=== PATIENT | male | born 1995 | race Caucasian/White ===

== ENCOUNTER 2019-02-02 09:45 | Emergency (ER) | payer BC ==
--- NOTE | 2019-02-02 10:39 | ER Document Report ---
ED General - General Chief Complaint: Abdominal Pain Stated Complaint: ABDOMINAL PAIN Time Seen by Provider: 02/02/19 10:22 Notes: 23-year-old male with ulcerative colitis diagnosed in 2016 not currently on treatment presents to the emergency department for near syncopal episode at work today. He states over the last couple weeks he has had a UC flare and has had severe loss of appetite, weakness, dizziness and has been pale. Said he has had intermittent fevers, no nausea, no vomiting, has had diarrhea with some bloody diarrhea today, no shortness of breath or chest pain. No other complaints. He said he has been straining with his bowel movements who is unsure if it is from a hemorrhoid or if it is truly hematochezia. TRAVEL OUTSIDE OF THE [place] IN LAST 30 DAYS: No Past Medical History - Social History Smoking Status: Unknown if Ever Smoked Family History: None Review of Systems - Review of Systems Constitutional: See HPI EENT: See HPI Cardiovascular: See HPI Respiratory: See HPI Gastrointestinal: See HPI Genitourinary: See HPI Male Genitourinary: No symptoms reported Musculoskeletal: No symptoms reported Skin: No symptoms reported Hematologic/Lymphatic: No symptoms reported Neurological/Psychological: No symptoms reported Physical Exam - Vital signs Vitals: Resp Pulse Ox 17 100 02/02/19 10:37 02/02/19 10:37 - Notes Notes: PHYSICAL EXAMINATION: Reviewed vital signs and charting by RN GENERAL: Well-appearing, well-nourished and in no acute distress. HEAD: Atraumatic, normocephalic. EYES: Pupils are 3 mm and equal/round, extraocular movements intact, sclera anicteric, conjunctiva are normal. ENT: Nares patent bilaterally, oropharynx clear without exudates or palatal petechia. Moist mucous membranes. No tonsil hypertrophy. NECK: Normal range of motion, supple without lymphadenopathy. LUNGS: Breath sounds present, equal, and clear to auscultation bilaterally. No wheezes, rales, or rhonchi. HEART: Regular rate and rhythm without murmurs, rubs, or gallops. 2+ peripheral pulses. Normal capillary refill. ABDOMEN: Soft, nontender, nondistended. Normoactive bowel sounds. No guarding, no rebound. No masses appreciated. BACK: Normal contour, no midline tenderness. Rectal exam deferred. EXTREMITIES: Normal range of motion, no pitting or edema. No cyanosis. NEUROLOGICAL: No focal neurological deficits. Moves all extremities spontaneously and on command. SKIN: Warm, dry, normal turgor, no rashes or lesions noted. Course - Re-evaluation Re-evalutation: 02/02/19 10:38 Patient overall well-appearing. States he is having an ulcerative colitis flare and has had no appetite at all denies nausea or vomiting but has had bloody diarrhea. Some basic lab work is ordered. At this time I will order a CT with IV contrast. 02/02/19 12:34 Work-up is completed, patient has no leukocytosis, his hemoglobin is 8.9 and he is pale-appearing but he is above transfusion threshold. He has a microcytic anemia most likely secondary to iron deficiency. At this time there is no indication to do any imaging as patient is nontoxic nonfebrile, and does not have a leukocytosis. I am going to give him some IV rehydration. I added an ESR to the lab work. It is still pending. At this time patient does not meet admission criteria. There is no indication for antibiotics. 02/02/19 12:58 02/02/19 13:[address] Esposito, will give him burst of steroids and I will prescribe him a 10-day supply of his sulfasalazine. I will [facility]. Stable for discharge, vital signs are stable. - Vital Signs Vital signs: Temp Pulse Resp BP Pulse Ox 16 113/68 100 02/02/19 13:01 02/02/19 13:00 02/02/19 13:01 - Laboratory Result Diagrams: 02/02/19 10:45 02/02/19 10:45 Laboratory results interpreted by me: 02/02/19 02/02/19 02/02/19 10:45 10:45 10:45 RBC 3.87 L Hgb 8.9 L Hct 28.0 L MCV 72 L MCH 23.1 L MCHC 31.9 L RDW 15.4 H Lymphocytes % 11.7 L Monocytes % 13.1 H C-Reactive Protein 27.3 H Urine Protein 30 H Urine Ascorbic Acid 20 H Discharge - Discharge Clinical Impression: Weakness Condition: Stable Disposition: HOME, SELF-CARE Additional Instructions: You were seen in the emergency department this afternoon for weakness possibly secondary to your ulcerative colitis. It is important that you establish care with a primary doctor to restart your sulfasalazine treatment. You do have an anemia that is possibly related to iron deficiency so you should start trying to eat iron rich foods once you regain your appetite. If you develop high fever, passout, have bloody vomiting or profuse bloody diarrhea, intractable abdominal pain, intractable nausea, please return to the emergency department for reevaluation. Prescriptions: Prednisone [Deltasone 20 mg Tablet] 3 tab PO DAILY 5 Days tablet Sulfasalazine 1,000 mg PO TID 10 Days #30 tablet Referrals: DIV[facility] MD [[facility]ON[facility]] - Follow up as needed
[2019-02-02 11:14] LABS: ABSOLUTE EOSINOPHILS # (AUTO) 0.4 10^3/uL (0.0-0.6); ABSOLUTE MONOCYTES (AUTO) 1.2 10^3/uL (0.1-1.4); ABSOLUTE NEUT (AUTO) 6.2 10^3/uL (1.7-8.2); BASOPHILS % (AUTO) 0.3 % (0-2); EOSINOPHILS % (AUTO) 4.5 % (0-6); HEMOGLOBIN 8.9 g/dL (13.5-17.0); LYMPHOCYTES % (AUTO) 11.7 % (13-45); MEAN CORPUSCULAR HEMOGLOBIN 23.1 pg (27.0-33.4); MEAN CORPUSCULAR HGB CONC 31.9 g/dL (32.0-36.0); MEAN CORPUSCULAR VOLUME 72 fl (80-97); MONOCYTES % (AUTO) 13.1 % (3-13); PLATELET COUNT 442 10^3/uL (150-450); RED BLOOD COUNT 3.87 10^6/uL (4.35-5.55); RED CELL DISTRIBUTION WIDTH 15.4 % (11.5-14.0); SEGMENTED NEUTROPHILS % (AUTO) 70.4 % (42-78); TOTAL CELLS COUNTED % (AUTO) 100 %; WHITE BLOOD COUNT 8.9 10^3/uL (4.0-10.5)
[2019-02-02 11:19] LABS: APPEARANCE,URINE CLEAR; BILIRUBIN,URINE NEGATIVE (NEGATIVE); COLOR,URINE YELLOW; GLUCOSE, URINE NEGATIVE (NEGATIVE); KETONES,URINE NEGATIVE (NEGATIVE); LEUKOCYTE ESTERASE,URINE NEGATIVE (NEGATIVE); NITRITE,URINE NEGATIVE (NEGATIVE); PROTEIN,URINE 30 mg/dL (NEGATIVE); URINE SPECIFIC GRAVITY 1.024; UROBILINOGEN,URINE NEGATIVE mg/dL (<2.0)
[2019-02-02 11:42] LABS: ALANINE AMINOTRANSFERASE 21 U/L (21-72); ALBUMIN 3.7 g/dL (3.5-5.0); ALKALINE PHOSPHATASE 67 U/L (38-126); ANION GAP 11 (5-19); ASPARTATE AMINO TRANSFERASE 23 U/L (17-59); BILIRUBIN,DIRECT 0.3 mg/dL (0.0-0.4); BILIRUBIN,TOTAL 0.3 mg/dL (0.2-1.3); BLOOD UREA NITROGEN 8 mg/dL (7-20); CARBON DIOXIDE 28 mmol/L (22-30); CHLORIDE 100 mmol/L (98-107); GLUCOSE 104 mg/dL (75-110); LIPASE 71.7 U/L (23-300); POTASSIUM 4.4 mmol/L (3.6-5.0); SODIUM 139.1 mmol/L (137-145); TOTAL PROTEIN 6.8 g/dL (6.3-8.2)
[2019-02-02] MEDS ORDERED: NORMAL SALINE 1000 ML 1,000 ML IV PRN (12:34)
[2019-02-02] MEDS ORDERED: NORMAL SALINE 1000 ML 500 ML IV ONE (12:44)
[2019-02-02] MEDS ORDERED: PREDNISONE 20 MG TABLET PO ONE (13:58)
[2019-02-02 14:32] VITALS: BP 114/78
--- NOTE | 2019-02-04 11:23 | EKG REPORT ---
SEVERITY:- OTHERWISE NORMAL ECG - SINUS TACHYCARDIA : Confirmed by: Marlene Brown 04-Feb-2019 11:22:38
== END 2019-02-02 14:30 | disposition home or self-care (01) ==
LOC: ER 09:45
DX: R53.1 Weakness (principal); R55 Syncope and collapse; R42 Dizziness and giddiness; F50.89 Other specified eating disorder; K51.90 Ulcerative colitis, unspecified, without complications
CPT/HCPCS: 99284; 96360; 36415; 83690; 85025; 86140; 80053; 81001; 93005; 93010; J7512; J7030

== ENCOUNTER → 2020-06-20 | Day surgery (SDC) | payer BC ==
[~2020-06-20] MED LIST: PROPOFOL INJ 200 MG/20 ML VIAL IV ONE
--- NOTE | 2020-06-20 08:11 | Operative Report ---
Operative Report DATE OF SURGERY: 06/20/20 Operative Report: The risk, benefits and alternatives of the procedure including the risk of bleeding, perforation requiring surgery have been explained to the patient in detail and informed consent has been obtained. The patient is placed in a left, lateral decubital position. Timeout was called. Propofol medication is administered. A rectal examination is done which did not reveal any masses, tears or fissures. An Olympus videoscope was introduced into the patient's rectum. Scope was then carefully advanced all the way to the cecum. Cecum was identified by the usual anatomical landmarks including the ileocecal valve as well as the appendiceal office. Photodocumentation is obtained. Scope was then sequentially pulled back via the various segments of the colon including the ascending colon, hepatic flexure, transverse colon, splenic flexure, descending colon and finally into the rectosigmoid portions of the colon. Retroflexion maneuvers performed. PREOPERATIVE DIAGNOSIS: History of ulcerative colitis for surveillance POSTOPERATIVE DIAGNOSIS: Colitis from 0 to 25 cm status post biopsy OPERATION: Colonoscopy with biopsy SURGEON: CRISTINA HAYNES ANESTHESIA: LMAC TISSUE REMOVED OR ALTERED: As noted above. COMPLICATIONS: None. ESTIMATED BLOOD LOSS: None. INTRAOPERATIVE FINDINGS: As noted above. PROCEDURE: Patient tolerated the procedure well. No immediate postprocedure complications are noted. Patient is discharged in good condition. Discharge date 06/20/2020. Discharge diet: Regular. Discharge activity: Regular. 2 to 3-week follow-up to discuss findings. Patient is instructed to call the office or proceed to the emergency room should there be any further problems or questions. Wait on the pathology.
[2020-06-20 09:22] VITALS: BP 106/64
== END ==
LOC: END 06:43
PROVIDERS: ATTEND Internal Medicine Gastroenterology
DX: K52.9 Noninfective gastroenteritis and colitis, unspecified (principal); K62.89 Other specified diseases of anus and rectum; Z87.19 Personal history of other diseases of the digestive system; Z68.20 Body mass index [BMI] 20.0-20.9, adult; Z03.818 Encounter for observation for suspected exposure to other biological agents ruled out
CPT/HCPCS: 45380; 88305 ×2; 00811; U0003; J2704; C9803; 811; 87635